=== PATIENT | male | born 1955 | race Caucasian/White ===

== ENCOUNTER 2016-09-04 02:05 | Inpatient (IN) | payer MEDICARE, OTHER ==
[~2016-09-04] VITALS: Ht 180.3 cm; Wt 81.2 kg
[2016-09-04] MEDS ORDERED: IV NS 0.9% 1,000 ML BAG IV ONE (02:30)
[2016-09-04] MEDS ORDERED: IV SET PRIMARY 1 EA INFUS.SET MC ONE ×2 (02:45)
[2016-09-04 02:56] LABS: BASOPHILS % (AUTO) 0.1 % (0.0-2.0); DIFF TOTAL % 100 %; EOSINOPHILS # (AUTO) 0.1 /CMM (0.0-0.7); HEMATOCRIT 36 % (39-51); HEMOGLOBIN 11.5 g/dL (13.5-17.5); LYMPHOCYTES # (AUTO) 0.5 /CMM (0.8-4.8); LYMPHOCYTES % (AUTO) 3.8 % (20.0-44.0); MEAN CORPUSCULAR HEMOGLOBIN 25 PG (26.0-33.0); MEAN CORPUSCULAR HGB CONC 32 g/dl (31.0-36.0); MEAN CORPUSCULAR VOLUME 79 fL (80-96); MONOCYTES # (AUTO) 1.5 /CMM (0.1-1.30); NEUTROPHILS # (AUTO) 11.5 /CMM (1.8-8.9); NEUTROPHILS % (AUTO) 84.1 % (43.0-81.0); PLATELET COUNT (AUTO) 537 /CMM (150-450); RED BLOOD CELL COUNT(AUTO) 4.54 MIL/uL (4.5-6.0); WHITE BLOOD COUNT (AUTO) 13.7 K/uL (4.3-11.0)
[2016-09-04 03:06] LABS: CALCIUM, SERUM 9.8 mg/dL (8.5-10.1); POTASSIUM 4.4 mmol/L (3.5-5.1)
[2016-09-04 03:12] LABS: ALBUMIN 2.5 g/dL (3.4-5.0); BILIRUBIN,TOTAL 0.1 mg/dL (0.2-1.0); INDIRECT BILIRUBIN 0.1 mg/dL (0.0-1.1); TOTAL PROTEIN, SERUM 6.6 g/dL (6.4-8.2)
[2016-09-04 03:18] LABS: INR 0.97 (0.87-1.13); PROTHROMBIN TIME 10.5 SECS (9.5-12.7)
[2016-09-04 03:44] LABS: ADD UA MICROSCOPIC NO; KETONES,URINE NEGATIVE (NEGATIVE); LEUKOCYTE ESTERASE ,URINE NEGATIVE (NEGATIVE); PH,URINE 6.5 (5.0-8.0)
[2016-09-04 04:00] VITALS: BP 130/82
[2016-09-04] MEDS ORDERED: FLUO40CA8 PO ×2 (04:11→21:34)
[2016-09-04] MEDS ORDERED: ATEN100T PO (04:11)
[2016-09-04] MEDS ORDERED: ROSU5TAB PO (04:11)
[2016-09-04] MEDS ORDERED: ACETAMINOPHEN 325 MG TABLET PO PRN (04:30)
[2016-09-04 06:39] LABS: INR 0.95 (0.87-1.13); PROTHROMBIN TIME 10.3 SECS (9.5-12.7)
[2016-09-04 06:48] LABS: BASOPHILS % (AUTO) 0.3 % (0.0-2.0); DIFF TOTAL % 100 %; EOSINOPHILS # (AUTO) 0.1 /CMM (0.0-0.7); HEMATOCRIT 35 % (39-51); HEMOGLOBIN 11.3 g/dL (13.5-17.5); LYMPHOCYTES # (AUTO) 0.5 /CMM (0.8-4.8); LYMPHOCYTES % (AUTO) 3.9 % (20.0-44.0); MEAN CORPUSCULAR HEMOGLOBIN 25 PG (26.0-33.0); MEAN CORPUSCULAR HGB CONC 32 g/dl (31.0-36.0); MEAN CORPUSCULAR VOLUME 79 fL (80-96); MONOCYTES # (AUTO) 1.5 /CMM (0.1-1.30); MONOCYTES % (AUTO) 10.4 % (2.0-12.0); NEUTROPHILS # (AUTO) 11.8 /CMM (1.8-8.9); NEUTROPHILS % (AUTO) 84.4 % (43.0-81.0); PLATELET COUNT (AUTO) 518 /CMM (150-450); RED BLOOD CELL COUNT(AUTO) 4.47 MIL/uL (4.5-6.0)
[2016-09-04 06:53] LABS: ALBUMIN 2.7 g/dL (3.4-5.0); BILIRUBIN,TOTAL 0.2 mg/dL (0.2-1.0); CALCIUM, SERUM 10.1 mg/dL (8.5-10.1); CREATININE 0.9 mg/dL (0.6-1.3); POTASSIUM 4.2 mmol/L (3.5-5.1); TOTAL PROTEIN, SERUM 6.8 g/dL (6.4-8.2)
[2016-09-04 07:22] LABS: ERYTHROCYTE SEDIMENTATION RATE 17 MM/HR (0-20)
[2016-09-04 08:00] VITALS: BP 123/83
[2016-09-04] MEDS ORDERED: Medication Not On Formulary EA (Rosuvastatin Calcium (Crestor) 1 TAB) PO SCH (09:00)
[2016-09-04] MEDS: FLUOXETINE HCL 20 MG CAPSULE PO SCH (09:26)
[2016-09-04] MEDS: ATORVASTATIN 10 MG TABLET PO SCH (09:26)
[2016-09-04] MEDS: ATENOLOL 50 MG TABLET PO SCH (09:26)
[2016-09-04 16:00] VITALS: BP 118/75
[2016-09-04 16:27] LABS: RETICULOCYTE COUNT 1.5 % (0.6-2.5)
[2016-09-04 16:50] LABS: THYROID STIMULATING HORMONE 1.646 uIU/mL (0.358-3.74)
[2016-09-04 20:00] VITALS: BP 116/76
[2016-09-04] MEDS ORDERED: HALO10TA13 PO (21:34)
[2016-09-04] MEDS ORDERED: LITH600C PO (21:34)
[2016-09-04] MEDS ORDERED: LITH300T PO (21:34)
[2016-09-04] MEDS ORDERED: FLUR30CA13 PO (21:34)
[2016-09-04] MEDS ORDERED: DIPH25CA83 PO (21:34)
[2016-09-04] MEDS ORDERED: DIVA500T7 PO (21:34)
[2016-09-04] MEDS ORDERED: OLAN10TA3 PO (21:34)
[2016-09-04] MEDS ORDERED: HALOPERIDOL 5 MG TABLET ONE (22:20)
[2016-09-04] MEDS ORDERED: OLANZAPINE 10 MG TABLET ONE (22:21)
[2016-09-04] MEDS ORDERED: LITHIUM CARBONATE (300 MG CAP) 300 MG CAPSULE ONE (22:21)
[2016-09-04] MEDS ORDERED: LITHIUM CARBONATE (300 MG CAP) 300 MG CAPSULE PO SCH (22:30)
[2016-09-04] MEDS ORDERED: HALOPERIDOL 5 MG TABLET PO SCH (22:30)
[2016-09-04] MEDS ORDERED: OLANZAPINE 10 MG TABLET PO SCH (22:30)
[2016-09-04] MEDS ORDERED: DIVALPROEX SODIUM 500 MG TABLET.DR PO ONE (22:37)
[2016-09-04] MEDS ORDERED: DIVALPROEX SODIUM 500 MG TABLET.DR PO SCH (23:00)
[2016-09-05] MEDS ORDERED: TEMAZEPAM 15 MG CAPSULE PO PRN (02:30)
[2016-09-05] MEDS ORDERED: HALOPERIDOL 5 MG TABLET PO PRN (03:00)
[2016-09-05 06:49] VITALS: BP 127/82
[2016-09-05] MEDS ORDERED: MIDAZOLAM HCL 2 MG/2ML VIAL ONE (07:22)
[2016-09-05] MEDS ORDERED: FENTANYL PF 100MCG/2ML AMPUL ONE (07:22)
[2016-09-05] MEDS ORDERED: LIDOCAINE MPF 1%-EPI 1:200,000 30 ML VIAL IJ ONE (07:52)
[2016-09-05 08:00] VITALS: BP 127/82
[2016-09-05] MEDS ORDERED: LITHIUM CARBONATE (300 MG CAP) 300 MG CAPSULE PO SCH (09:00)
[2016-09-05] MEDS: ATENOLOL 50 MG TABLET PO SCH (09:00)
[2016-09-05] MEDS: OLANZAPINE 10 MG TABLET PO SCH ×3 (10:01→17:26)
[2016-09-05] MEDS: LITHIUM CARBONATE (300 MG CAP) 300 MG CAPSULE PO SCH ×2 (10:01→21:01)
[2016-09-05] MEDS: DIVALPROEX SODIUM 500 MG TABLET.DR PO SCH ×2 (10:01→17:26)
[2016-09-05] MEDS: diphenhydrAMINE HCL 25 MG CAPSULE PO SCH ×3 (10:02→17:26)
[2016-09-05] MEDS: FLUOXETINE HCL 20 MG CAPSULE PO SCH (10:02)
[2016-09-05] MEDS: ATORVASTATIN 10 MG TABLET PO SCH (10:02)
[2016-09-05] MEDS: HALOPERIDOL 5 MG TABLET PO SCH ×3 (10:03→17:26)
[2016-09-05 16:00] VITALS: BP 98/70
[2016-09-05 20:00] VITALS: BP 138/96
[2016-09-06 06:32] LABS: CALCIUM, SERUM 9.2 mg/dL (8.5-10.1); POTASSIUM 4.2 mmol/L (3.5-5.1)
[2016-09-06 06:35] LABS: BASOPHILS % (AUTO) 0.1 % (0.0-2.0); DIFF TOTAL % 100 %; EOSINOPHILS # (AUTO) 0.1 /CMM (0.0-0.7); HEMATOCRIT 31 % (39-51); LYMPHOCYTES # (AUTO) 0.4 /CMM (0.8-4.8); LYMPHOCYTES % (AUTO) 3.2 % (20.0-44.0); MEAN CORPUSCULAR HEMOGLOBIN 25 PG (26.0-33.0); MEAN CORPUSCULAR HGB CONC 32 g/dl (31.0-36.0); MEAN CORPUSCULAR VOLUME 78 fL (80-96); MONOCYTES # (AUTO) 1.1 /CMM (0.1-1.30); MONOCYTES % (AUTO) 7.5 % (2.0-12.0); NEUTROPHILS # (AUTO) 12.4 /CMM (1.8-8.9); NEUTROPHILS % (AUTO) 88.2 % (43.0-81.0); PLATELET COUNT (AUTO) 419 /CMM (150-450); WHITE BLOOD COUNT (AUTO) 14.1 K/uL (4.3-11.0)
[2016-09-06 08:00] VITALS: BP 122/81
[2016-09-06] MEDS: diphenhydrAMINE HCL 25 MG CAPSULE PO SCH ×3 (09:12→17:43)
[2016-09-06] MEDS: ATORVASTATIN 10 MG TABLET PO SCH (09:13)
[2016-09-06] MEDS: DIVALPROEX SODIUM 500 MG TABLET.DR PO SCH ×2 (09:13→17:44)
[2016-09-06] MEDS: LITHIUM CARBONATE (300 MG CAP) 300 MG CAPSULE PO SCH ×2 (09:14→21:08)
[2016-09-06] MEDS: ATENOLOL 50 MG TABLET PO SCH (09:14)
[2016-09-06] MEDS: FLUOXETINE HCL 20 MG CAPSULE PO SCH (09:14)
[2016-09-06] MEDS: HALOPERIDOL 5 MG TABLET PO SCH ×3 (09:15→17:44)
[2016-09-06] MEDS: OLANZAPINE 10 MG TABLET PO SCH ×3 (09:16→17:44)
[2016-09-06 20:00] VITALS: BP 111/71
[2016-09-07 08:00] VITALS: BP 122/77
[2016-09-07] MEDS: OLANZAPINE 10 MG TABLET PO SCH ×3 (08:32→17:08)
[2016-09-07] MEDS: DIVALPROEX SODIUM 500 MG TABLET.DR PO SCH ×2 (08:32→17:08)
[2016-09-07] MEDS: ATORVASTATIN 10 MG TABLET PO SCH (08:32)
[2016-09-07] MEDS: HALOPERIDOL 5 MG TABLET PO SCH ×3 (08:32→17:08)
[2016-09-07] MEDS: diphenhydrAMINE HCL 25 MG CAPSULE PO SCH ×3 (08:32→17:08)
[2016-09-07] MEDS: LITHIUM CARBONATE (300 MG CAP) 300 MG CAPSULE PO SCH (08:33)
[2016-09-07] MEDS: ATENOLOL 50 MG TABLET PO SCH (08:33)
[2016-09-07] MEDS: FLUOXETINE HCL 20 MG CAPSULE PO SCH (08:34)
[2016-09-07 16:00] VITALS: BP 125/80
== END 2016-09-07 19:00 | disposition home or self-care (01) | DRG 823 ==
LOC: ER 02:11 → MED 03:25
PROVIDERS: ADMIT Internal Medicine Hematology & Oncology; ATTEND Nurse Practitioner Acute Care
PROC: 07BH0ZX Excision of Right Inguinal Lymphatic, Open Approach, Diagnostic (ICD-10-PCS; principal; 2016-09-05 10:15)
DX: C85.90 Non-Hodgkin lymphoma, unspecified, unspecified site (principal); E43 Unspecified severe protein-calorie malnutrition; I10 Essential (primary) hypertension; F31.9 Bipolar disorder, unspecified; Z91.19 Patient's noncompliance with other medical treatment and regimen; D72.829 Elevated white blood cell count, unspecified; E86.0 Dehydration; D47.3 Essential (hemorrhagic) thrombocythemia; D50.9 Iron deficiency anemia, unspecified; Z87.891 Personal history of nicotine dependence; Z68.25 Body mass index [BMI] 25.0-25.9, adult; R59.1 Generalized enlarged lymph nodes
CPT/HCPCS: 36415; 71250-TC; 72192-TC; 74150-TC; 80048-TC; 80053-TC; 80076-TC; 80164-TC; 81000-TC; 82232; 82306; 82728-TC; 82746; 83540-TC; 83615-TC; 84443-TC; 84550-TC; 85025-TC; 85045-TC; 85610-TC; 85652-TC; 85730-TC; 87081-TC; 88305-TC; 88342; A4606; A6209; A6402; J2250; J3010; J3490; Q0163; Z7610

== ENCOUNTER 2016-10-03 11:02 | Outpatient (CLI) | payer MEDICARE, OTHER ==
[~2016-10-03 11:02] MED LIST: ATEN100T PO; DIPH25CA83 PO; DIVA500T7 PO; FLUO40CA8 PO; FLUR30CA13 PO; LITH300T PO; LITH600C PO; OLAN10TA3 PO; ROSU5TAB PO
== END 2016-10-03 23:59 | disposition home or self-care (01) ==
LOC: CARD 11:02
PROVIDERS: ATTEND Internal Medicine Hematology & Oncology
DX: I50.1 Left ventricular failure, unspecified (principal); I34.0 Nonrheumatic mitral (valve) insufficiency
CPT/HCPCS: 93307-TC